=== PATIENT | female | born 1980 | race Caucasian/White ===

== ENCOUNTER → 2022-02-16 | Outpatient (CLI) | payer OTHER ==
[~2022-02-16] MED LIST: FAMO20TA PO; LIDOCAINE 1% MDV 20ML VIAL As Ordered ONE; MULT-40 PO; NUVAMIS2 VA; PANT40TA29 PO; VITA-243 PO; VITA100093 PO
[2022-02-16 10:20] VITALS: BP 142/80
== END ==
LOC: M IRPRO 09:43
PROVIDERS: ATTEND Physician Assistant
DX: E04.9 Nontoxic goiter, unspecified (principal)

== ENCOUNTER → 2022-03-14 | Outpatient (CLI) | payer OTHER ==
[~2022-03-14] MED LIST changes: +ISOVUE-370 76% 100ML VIAL As Ordered ONE; -LIDOCAINE 1% MDV 20ML VIAL As Ordered ONE
== END ==
LOC: M RAD 16:21
PROVIDERS: ATTEND Physician Assistant
DX: E04.1 Nontoxic single thyroid nodule (principal)

== ENCOUNTER → 2022-09-12 | Outpatient (CLI) | payer OTHER ==
[~2022-09-12] MED LIST changes: +ETON1VAG7 VA; -ISOVUE-370 76% 100ML VIAL As Ordered ONE; -NUVAMIS2 VA
== END ==
LOC: M RAD 13:52
PROVIDERS: ATTEND Physician Assistant
DX: E04.9 Nontoxic goiter, unspecified (principal)

== ENCOUNTER → 2023-04-04 | Outpatient (CLI) | payer OTHER | LOC: M WHC 10:30 | PROVIDERS: ATTEND Internal Medicine | DX: Z12.31 Encounter for screening mammogram for malignant neoplasm of breast (principal) ==

== ENCOUNTER → 2023-04-10 | Outpatient (CLI) | payer OTHER | LOC: M WHC 13:04 | PROVIDERS: ATTEND Internal Medicine | DX: N63.11 Unspecified lump in the right breast, upper outer quadrant (principal); N63.21 Unspecified lump in the left breast, upper outer quadrant ==

== ENCOUNTER 2023-09-08 20:51 | Emergency (ER) | payer OTHER ==
[~2023-09-08] VITALS: Ht 180.3 cm; Wt 116.8 kg
[2023-09-08] MEDS ORDERED: PROPOFOL 1,000 MG/100 ML VIAL As Ordered ONE (22:06)
[2023-09-09] MEDS: NORCO, ANEXSIA 5/325MG TABLET (HYDROcodone/ACETAMINOPHEN) PO ONE (00:50)
[2023-09-09 03:49] VITALS: BP 140/88; TEMP 97.6; O2SAT 98
== END 2023-09-09 03:55 | disposition home or self-care (01) ==
LOC: M ED 20:51
DX: S52.612A Displaced fracture of left ulna styloid process, initial encounter for closed fracture (principal); S52.572A Other intraarticular fracture of lower end of left radius, initial encounter for closed fracture; W19.XXXA Unspecified fall, initial encounter; E11.9 Type 2 diabetes mellitus without complications; J45.909 Unspecified asthma, uncomplicated; K21.9 Gastro-esophageal reflux disease without esophagitis; Z79.899 Other long term (current) drug therapy; Y92.89 Other specified places as the place of occurrence of the external cause; Y93.89 Activity, other specified; Y99.9 Unspecified external cause status

== ENCOUNTER 2023-09-17 09:58 | Day surgery (SDC) | payer OTHER ==
[~2023-09-17] VITALS: Ht 180.3 cm; Wt 115.0 kg
[2023-09-17] MEDS ORDERED: LIDOCAINE 2% 100MG/5ML SDV (FOR ANES.) As Ordered ONE (10:22)
[2023-09-17] MEDS ORDERED: propofoL 200 MG/20 ML VIAL As Ordered ONE (10:22)
[2023-09-17] MEDS ORDERED: LR 1,000 ML IV SCH (10:30)
[2023-09-17] MEDS ORDERED: OXYC1TAB23 PO (10:53)
[2023-09-17] MEDS ORDERED: ROCURONIUM BROMIDE 50MG/5ML VIAL As Ordered ONE (10:57)
[2023-09-17] MEDS: BACITRACIN OINTMENT 30GM TUBE As Ordered ONE (10:58)
[2023-09-17] MEDS: fentaNYL 100 MCG/2 ML INJECTION IV PRN (11:07)
[2023-09-17] MEDS: MIDAZOLAM INJ 2MG/2ML VIAL IV PRN (11:07)
[2023-09-17] MEDS ORDERED: ceFAZolin SOD 2 GM in IV 1 EA IV ONE (11:15)
[2023-09-17] MEDS: ROPIvacaine 0.5% 30ML VIAL PN ONE (11:15)
[2023-09-17] MEDS: EPINEPHrine INJ 1 MG/ML 1ML AMP PN ONE (11:15)
[2023-09-17] MEDS: LIDOCAINE 1% SDV 5ML VIAL PN ONE (11:15)
[2023-09-17] MEDS: ceFAZolin 2 GM/D5W 50 ML IV BAG As Ordered ONE (11:43)
[2023-09-17] MEDS ORDERED: KETOROLAC 60MG 2ML VIAL As Ordered ONE (11:52)
[2023-09-17] MEDS ORDERED: ACETAMINOPHEN 1000MG 100ML IV BAG As Ordered ONE (11:52)
[2023-09-17] MEDS ORDERED: SUGAMMADEX SODIUM 500 MG/5 ML VIAL (BRIDION) As Ordered ONE (11:52)
[2023-09-17] MEDS ORDERED: ONDANSETRON 4MG 2ML VIAL As Ordered ONE (11:53)
[2023-09-17] MEDS ORDERED: fentaNYL 100 MCG/2 ML INJECTION IV PRN (12:45)
[2023-09-17] MEDS ORDERED: oxyCODONE 5MG TAB PO PRN (12:45)
[2023-09-17] MEDS ORDERED: ONDANSETRON 4MG 2ML VIAL IV PRN (12:45)
[2023-09-17] MEDS ORDERED: MEPERIDINE 25 MG/ML 1ML VIAL As Ordered ONE (12:46)
[2023-09-17] MEDS: MEPERIDINE 25 MG/ML 1ML VIAL IV PRN (13:05)
[2023-09-17 13:45] VITALS: BP 146/88; TEMP 99.2; O2SAT 96
== END 2023-09-17 14:45 | disposition home or self-care (01) ==
LOC: M SDC 09:58
PROVIDERS: ATTEND Orthopaedic Surgery Hand Surgery
DX: S52.572A Other intraarticular fracture of lower end of left radius, initial encounter for closed fracture (principal); J45.909 Unspecified asthma, uncomplicated; W16.42XA Fall into unspecified water causing other injury, initial encounter; Z79.899 Other long term (current) drug therapy; Y93.9 Activity, unspecified; Y92.828 Other wilderness area as the place of occurrence of the external cause; K21.9 Gastro-esophageal reflux disease without esophagitis; Z97.5 Presence of (intrauterine) contraceptive device; Z88.0 Allergy status to penicillin
CPT/HCPCS: 25609; 76000; C1713; J0131; J0171; J0665; J0690; J1100; J1885; J2175; J2250; J2405; J2795; J3010

== ENCOUNTER → 2023-10-01 | Outpatient (CLI) | payer OTHER ==
[~2023-10-01] MED LIST changes: +OXYC1TAB23 PO
== END ==
LOC: M SOG 08:00
PROVIDERS: ATTEND Physician Assistant
DX: S52.502A Unspecified fracture of the lower end of left radius, initial encounter for closed fracture (principal); M25.532 Pain in left wrist; Y93.9 Activity, unspecified; Y92.9 Unspecified place or not applicable

== ENCOUNTER → 2023-11-01 | Outpatient (CLI) | payer OTHER | LOC: M SOG 07:53 | PROVIDERS: ATTEND Physician Assistant | DX: S52.572D Other intraarticular fracture of lower end of left radius, subsequent encounter for closed fracture with routine healing (principal); Y93.9 Activity, unspecified; Y92.9 Unspecified place or not applicable ==

== ENCOUNTER → 2023-12-06 | Outpatient (CLI) | payer OTHER | LOC: M WHC 07:06 | PROVIDERS: ATTEND Family Medicine | DX: R92.8 Other abnormal and inconclusive findings on diagnostic imaging of breast (principal); N63.10 Unspecified lump in the right breast, unspecified quadrant; N63.20 Unspecified lump in the left breast, unspecified quadrant ==

== ENCOUNTER → 2023-12-12 | Outpatient (CLI) | payer OTHER | LOC: M SOG 09:15 | PROVIDERS: ATTEND Physician Assistant | DX: M25.532 Pain in left wrist (principal); Z47.89 Encounter for other orthopedic aftercare; Z96.698 Presence of other orthopedic joint implants ==

== ENCOUNTER → 2024-05-20 | Outpatient (CLI) | payer OTHER | LOC: M WHC 09:31 | PROVIDERS: ATTEND Family Medicine | DX: N60.11 Diffuse cystic mastopathy of right breast (principal); N60.12 Diffuse cystic mastopathy of left breast | CPT/HCPCS: 77066; G0279 ==